=== PATIENT | male | born 1990 | race Caucasian/White ===

== ENCOUNTER 2016-09-06 14:25 | Emergency (ER) | payer OTHER ==
[~2016-09-06] VITALS: Ht 172.7 cm; Wt 56.8 kg
[~2016-09-06 14:25] MED LIST: NOCURR
[2016-09-06 14:27] VITALS: BP 117/81
[2016-09-06] MEDS ORDERED: SULFAMETHOX/TRIMETH DS 800-160 MG/TABLET PO ONE (16:15)
[2016-09-06] MEDS ORDERED: CEPHALEXIN MONOHYDRATE 500 MG CAPSULE PO ONE (16:15)
[2016-09-06] MEDS ORDERED: LIDOCAINE HCL 1%/EPI 1:100,000 30 ML VIAL INJ ONE (16:15)
== END 2016-09-06 16:27 | disposition home or self-care (01) ==
LOC: EMS 14:27
DX: S93.602A Unspecified sprain of left foot, initial encounter (principal); W17.89XA Other fall from one level to another, initial encounter; Y93.89 Activity, other specified; Y92.89 Other specified places as the place of occurrence of the external cause; Y99.8 Other external cause status
CPT/HCPCS: 99284; J3490